=== PATIENT | male | born 2000 | race Asian ===

== ENCOUNTER 2021-11-13 08:16 | Emergency (ER) | payer OTHER ==
[2021-11-13 08:36] VITALS: BP 123/81
--- NOTE | 2021-11-13 10:10 | CT Report ---
PROCEDURE: HEAD WO INDICATIONS: RIGHT parietal headache TECHNIQUE: Noncontrast 4.5 mm thick angled axial sections acquired from the foramen magnum to the vertex. For r adiation dose reduction, the following was used: automated exposure control, adjustment of mA and/or kV according to patient size. COMPARISON: None. FINDINGS: Image quality: Excellent. CSF spaces: Basal cisterns are patent. No extra-axial fluid collections. Ventricles are normal in size and shape. Brain: No midline shift. No intracranial masses or hemorrhage. Patel-white matter interface is norm al. Skull and face: Calvarium and visualized facial bones are intact, without suspicious lesions. Sinuses: Visualized sinuses and mastoids are clear. IMPRESSION: No acute intracranial finding. Reviewed by: Shahram Cardoso MD on 11/13/2021 10:09 AM [facility] Approved by: Shahram Cardoso MD on 11/13/2021 10:09 AM [facility] Station ID: [id number]
--- NOTE | 2021-11-13 10:25 | ED Physician Documentation ---
PD HPI HEADACHE - Stated complaint Stated Complaint: HEAD PX - Chief complaint Chief Complaint: Heent - History obtained from History obtained from: Patient - History of Present Illness Timing - onset: How many weeks ago (3) Timing - onset during: Rest Timing - duration: Weeks (3) Timing - details: Abrupt onset, Still present, Waxing and waning Location: Right Quality: Throbbing, Stabbing Associated symptoms: Numbness (to the right ear). No: Fever, Stiff neck, Nausea, Vomiting, Weakness, Syncope, Seizure, Eye pain, Vision changes Improved by: Rest Contributing factors: No: Anticoagulated, Possible carbon monoxide, Hypertension Similar symptoms before: Has not had sx before Recently seen: Not recently seen - Additional information Additional information: 21-year-old male has developed some intermittent severe pain to the right side of his head. He states the pain comes from the back of his head forward and sometimes last for about half an hour and the skin can be very sensitive. He states that he has had recurrent episodes of this frequently and this is been going on for about 3 weeks. He states that it is gotten worse. He has not had any rash. He denies any nausea or vomiting. He does not have a history of headaches or migraines. Review of Systems Constitutional: denies: Fever Eyes: denies: Decreased vision, Photophobia, Discharge, Irritation Ears: denies: Ear pain Nose: denies: Rhinorrhea / runny nose, Congestion Throat: denies: Sore throat Cardiac: denies: Chest pain / pressure, Palpitations Respiratory: denies: Dyspnea, Cough, Wheezing GI: denies: Abdominal Pain, Nausea, Vomiting, Constipation, Diarrhea : denies: Dysuria, Frequency Skin: denies: Rash Musculoskeletal: denies: Neck pain, Back pain, Extremity pain Neurologic: reports: Headache. denies: Generalized weakness, Focal weakness, Numbness, Confused, Altered mental status, Head injury, LOC PD PAST MEDICAL HISTORY - Past Medical History Past Medical History: No Cardiovascular: None Respiratory: None Neuro: None Endocrine/Autoimmune: None GI: None : None HEENT: None Psych: None Musculoskeletal: None Derm: None - Past Surgical History Past Surgical History: No - Present Medications Home Medications: Ambulatory Orders Medication Instructions Recorded Confirmed Valacyclovir HCl [Valtrex] 1,000 mg PO TID #21 tablet 11/13/21 - Allergies Allergies/Adverse Reactions: Allergies Allergy/AdvReac Type Severity Reaction Status Date / Time No Known Drug Allergies Allergy Verified 11/13/21 08:35 - Social History Does the pt smoke?: No Smoking Status: Never smoker Does the pt drink ETOH?: No Does the pt have substance abuse?: No - Immunizations Immunizations are current?: Yes - POLST Patient has POLST: No PD ED PE NORMAL - Vitals Vital signs reviewed: Yes (Hypertensive) - General General: Alert and oriented X 3, No acute distress, Well developed/nourished - HEENT HEENT: Atraumatic, PERRL, EOMI, Ears normal, Moist mucous membranes, Pharynx benign, Dentition benign, Other (There is no evidence of skin irritation or rash to the scalp on the right side. ) - Neck Neck: Supple, no meningeal sign, No bony TTP, Other (No significant tenderness to the insertion of the trapezius to the occiput.) - Respiratory Respiratory: No respiratory distress - Derm Derm: Normal color, Warm and dry, No rash - Extremities Extremities: No deformity, No edema - Neuro Neuro: Alert and oriented X 3, manager media relations 2-12 intact, No motor deficit, No sensory deficit, Normal speech Eye Opening: Spontaneous Motor: Obeys Commands Verbal: Oriented GCS Score: 15 - Psych Psych: Normal mood, Normal affect Results - Vitals Vitals: Vital Signs - 24 hr 11/13/21 08:29 Temperature 36.4 C L Heart Rate 76 Respiratory 15 Rate Blood Pressure 123/81 H O2 Saturation 100 Oxygen O2 Source Room air - Rads (name of study) CT Radiology: Prelim report reviewed (Impression: No acute intracranial finding.), EMP read indepedently, See rad report PD MEDICAL DECISION MAKING - ED course Complexity details: reviewed results, re-evaluated patient, considered differential, d/w patient ED course: 21-year-old male with episodic right scalp pain in the distribution of a nerve l bridget has shingles. He does not have a rash. I discussed with the patient treatment for this and have recommended he take a course of valacyclovir. Departure - Departure Disposition: 01 Home, Self Care Clinical Impression: Shingles Qualifiers: Herpes zoster complications: without complications Qualified Code(s): B02.9 - Zoster without complications Condition: Stable Instructions: ED Shingles Follow-Up: MEAGAN Estes [Provider Group] Prescriptions: Valacyclovir HCl [Valtrex] 1,000 mg PO TID #21 tablet Comments: Juan, today it seems the pain that you are having periodically come into your scalp on the right side is likely the shingles. We do not encounter a rash today. If her rash does occur this would be contagious and you should avoid anyone who has not had chickenpox. I have prescribed some valacyclovir it has been [facility] to [facility] in [place]. You will need to take this 3 times a day for 1 week. The expectation is your symptoms improve over the next 3 days. Discharge Date/Time: 11/13/21 10:46
== END 2021-11-13 10:46 | disposition home or self-care (01) ==
LOC: ED 08:16
DX: B02.9 Zoster without complications (principal)
CPT/HCPCS: 99282; 99284

== ENCOUNTER 2023-11-24 15:54 | Outpatient (CLI) | payer OTHER ==
--- NOTE | 2023-11-24 16:17 | XRAY Report ---
PROCEDURE: Chest 2V INDICATIONS: TESTING FOR LATENT TUBERCULOSIS INFECTION TECHNIQUE: 2 views of the chest were acquired. COMPARISON: None. FINDINGS: Surgical changes and devices: None. Lungs and pleura: No pleural effusions or pneumothorax. Lungs are clear. Mediastinum: Mediastinal contours appear normal. Heart size is normal. Bones and chest wall: No suspicious bony lesions. Overlying soft tissues appear unremarkable. IMPRESSION: No acute cardiopulmonary process. Reviewed by: Marcos Brown MD on 11/24/2023 4:15 PM PST Approved by: Marcos Brown MD on 11/24/2023 4:15 PM PST Station ID: [id number]
== END 2023-11-24 15:55 | disposition home or self-care (01) ==
LOC: DI 15:54
PROVIDERS: ATTEND Student in an Organized Health Care Education/Training Program
DX: Z11.7 Encounter for testing for latent tuberculosis infection (principal)

== ENCOUNTER 2023-12-12 12:46 | Outpatient (CLI) | payer OTHER ==
--- NOTE | 2023-12-12 13:45 | Sleep Patient Instructions ---
Sleep Center Visit Summary - Patient Visit Information Reason for Visit: Initial consult for evaluation of sleep disordered breathing and other sleep issues. - Patient Instructions Instructions Attached: Sleep Study, Sleep Study Home Monitor Additional Instructions: You will be completing a sleep study, either an in-lab polysomnography (PSG) or home sleep study (HST). You will follow-up in the sleep care office after the sleep study is completed to hear the results and talk about therapy, if needed. You will be called by our office staff to schedule this appointment, but you may contact us with any questions. - Clinic Information Contact: [facility] [address] [place] [id number] [email or web address] T: [phone]
--- NOTE | 2023-12-12 13:51 | SLEEP CARE CONSULTATION ---
Information from patient questionnaire entered by Irlanda Soares. I have reviewed and concur with the information entered by Irlanda Soares. This document represents the service I personally performed and the decisions made by me, Allison Hazel ARNP. History of Present Illness Service Date and Time: 12/12/2023 1246 Reason for Visit: New patient Chief Complaint: reports: Excessive daytime sleepiness, Fatigue, Frequent awakenings at night Date of Onset: 3-4MONTHS Usual bedtime: 7-8PM Time it takes to fall asleep: 15-20MINS Snores at night: Yes Observed to quit breathing while asleep: No Sleeps alone due to snoring: No Number of times waking at night: 2-3 Reasons for waking at night: reports: Choking, Gasping for air, Other (UNKNOWN). denies: Snoring Toss, Turn, or Twitch while sleeping: Yes Recalls having dreams: Yes Usually gets out of bed at: 4-430AM; weekends sometimes 11 after going back to sleep Feels refreshed in the morning: No Morning headache: No Sleepy or fatigued during the day: Yes Ever fallen asleep while driving: Yes (drowsy driving, no accidents) Takes day naps: No (tries not to) Prior sleep studies: No Additional HPI information: I had the pleasure of seeing AIME MUNGUIA today regarding the possibility of him having a sleep disorder. His current complaints are excessive daytime sleepiness, fatigue and frequent night awakenings. He says he saw his doctor because he will wake up frequently at night and have a hard time going back to sleep. He has a hard time getting up in the morning. He is very tired during the day and will find himself dozing off during workday. He has been told he snores and has experienced waking up with a jolt. He has woke up feeling like he is choking and gasping for air. He occasionally feels drowsy when driving but denies any accidents. He tries to sleep in on the weekends and will feel more rested. He has snorers in his family but no one diagnosed with sleep apnea. - Parasomnia Symptoms Ever been unable to move upon waking from sleep: No Walks in sleep: No Talks in sleep: Yes Ever acted out dreams in sleep: Yes (hitting out, kicking) Ever felt weak in the knees when startled or emotional: No Bothered by creepy, crawly, restless sensations in legs: No Problems with memory or concentration: No Subjective Initial [place] Sleepiness Scale score: 17 (12/11/23) Past Medical History Past Medical History: reports: Anxiety, Depression, Other (LEFT KNEE PAIN, STOMACH PROBLEMS, LOWER BACK PAIN) Social History The patient's occupation is a ACTIVE DUTY. Patient is Single and lives in . Have you smoked in the past 12 months: No Alcohol use: Yes Alcohol amount and frequency: 3-5 DRINKS ONCE A WEEK Caffeine use: No Family History Family history of sleep disordered breathing: Yes Family Hx Sleep Apnea: Father: Snoring, Sleep apnea - Untreated, Sibling: Snoring, Sleep apnea - Untreated, Grandparent: Snoring, Sleep apnea - Untreated Allergies and Home Medications Known drug allergies: No Drug allergies reviewed: Yes Home medication list reviewed: Yes (as listed) Allergy and home medication list: Allergies No Known Drug Allergies Allergy (Verified 12/10/23 12:03) Home Medications Medication Instructions Recorded Confirmed Last Taken Type diphenhydrAMINE [Benadryl] See Rx Instructions .ROUTE .COMPLEX 12/12/23 12/12/23 Unknown History Review of Systems Weight gain over past 5 years: 20 Cardiovascular: denies: high blood pressure Respiratory: reports: shortness of breath, chronic cough Gastrointestinal: reports: nausea, diarrhea, abdominal pain. denies: heartburn Neurological: reports: headaches Psychiatric: reports: anxiety, depression Ear/Nose/Throat: reports: sinus problems, wisdom teeth removed. denies: tonsillectomy Endocrine: reports: sluggishness, increased appetite Musculoskeletal: reports: back pain Physical Exam Vital signs obtained and entered by: IRLANDA Heller MA Blood Pressure: 118/74 (LEFT ARM) Cuff size: regular Heart Rate: 79 O2 Saturation: 99 Height: 5 ft 6 in (PER PT) Weight: 177 lb Body Mass Index: 28.5 BMI Classification: Overweight Neck circumference: 16.5 Mouth and throat: narrow oropharynx Soft palate: long Hard palate: Torus palatinus Uvula: long, edematous Uvula visualization: 25% Mallampati Class III Tongue: enlarged in size with teeth felix on lateral edges Tonsils: 1+ Neck: normal w/o lymphadenopathy or thyromegaly Heart: regular rate and rhythm Lungs: clear bilaterally Impression and Plan 1. Suspected Obstructive Sleep Apnea-Hypopnea Syndrome, as suggested by a history of loud and irregular snoring, gasping or choking in sleep, frequent awakening during the night, unrefreshed sleep, and excessive daytime sleepiness. Narrow oropharynx and obesity are common predisposing factors for obstructive sleep apnea-hypopnea syndrome. I recommend proceeding to polysomnography to confirm the diagnosis and to assess severity. If the patient has significant sleep disordered breathing, a manual CPAP titration study will also be performed to find the optimal treatment pressure. I informed the patient of what the sleep studies involve and after some discussion, obtained agreement to proceed. The pathophysiology of obstructive sleep apnea-hypopnea syndrome was discussed with the patient and health risks of cardiovascular and cerebrovascular disease if not treated. Risks of drowsy driving discussed in detail and patient advised to avoid long distance driving and to press puller at the first sign of drowsiness. Patient agreed to plan. * Schedule polysomnography +- manual CPAP titration study and return in 1-2 weeks after the study to discuss result and initiate therapy. * Avoid long distance driving or driving when feeling sleepy. * Avoid alcohol, sedative and muscle relaxant around bedtime. * Attempt to lose weight. * Review instructions provided by trained office staff on how to prepare for the sleep study. * Return for follow-up after sleep study completed. Counseling Topics: Weight loss health impact Follow up with Sleep Care in: other (after sleep study) Plan: PSG/HST Visit Type: In Office Time Spent with Patient (minutes): 30 Provider Statement: I spent 100% of the Face to Face Visit with the patient with greater than 50% spent counseling the patient and coordination of care.
[2023-12-12 13:55] VITALS: BP 118/74; O2SAT 99
== END 2023-12-12 12:47 | disposition home or self-care (01) ==
LOC: SC 12:46
PROVIDERS: ATTEND Nurse Practitioner Family
DX: R06.83 Snoring (principal); G47.8 Other sleep disorders; G47.10 Hypersomnia, unspecified; E66.3 Overweight; Z68.28 Body mass index [BMI] 28.0-28.9, adult
CPT/HCPCS: 99203; 99212

== ENCOUNTER 2024-01-03 09:54 | Outpatient (CLI) | payer OTHER ==
--- NOTE | 2024-01-05 09:06 | MRI Report ---
PROCEDURE: Lumbar Spine WO INDICATIONS: LOW BACK PAIN TECHNIQUE: Noncontrast sagittal T1 spin echo and T2 fast echo, sagittal STIR, axial T1 and T2 fast spin echo thr ough the lumbar spine. In cases with scoliosis, additional coronal T2 fast spin echo may be performe d. COMPARISON: None. FINDINGS: Image quality: Excellent. Alignment and Curvature: There is normal bony alignment. Bone Marrow: Marrow is of normal overall signal. No acute vertebral body compression fractures. Spinal Cord: Conus medullaris terminates at the L1-L2 level. Visualized cord demonstrates normal si gnal and size. Paraspinous Soft Tissues: No paravertebral masses. T12-L1: Normal in appearance. L1-L2: Normal in appearance. L2-L3: Normal in appearance. L3-L4: Normal in appearance. L4-L5: Annulus tear plus disc bulge. Mild facet hypertrophy. No canal stenosis or foraminal stenosi s. L5-S1: Normal in appearance. IMPRESSION: L4-L5, there is annulus tear plus disc bulge. Although there is no canal stenosis, in the acute setti ng, annulus tear can be quite symptomatic. However, annulus tears are quite comment on MRI, and are a very common incidental finding. There is also mild facet hypertrophy at L4-L5. Reviewed by: Ghulam Love MD on 01/05/2024 9:05 AM PDT Approved by: Ghulam Love MD on 01/05/2024 9:05 AM PDT Station ID: [id number]
== END 2024-01-03 09:55 | disposition home or self-care (01) ==
LOC: DI 09:54
DX: M51.36 Other intervertebral disc degeneration, lumbar region (principal); M47.816 Spondylosis without myelopathy or radiculopathy, lumbar region